=== PATIENT | female | born 1940 | race Two or more races ===

== ENCOUNTER → 2018-07-18 | Day surgery (SDC) | payer OTHER ==
[~2018-07-18] MED LIST: INDUR PO; PAXIL20 MG PO; RESTORIL7.5 MG PO; ZANTAC300 MG PO
== END | disposition home or self-care (01) ==
LOC: CIR.AMB 07:10 → ADM 08:00 → CIR.AMB 08:00
DX: C50.411 Malignant neoplasm of upper-outer quadrant of right female breast (principal)